=== PATIENT | female | born 1985 | race Caucasian/White ===

== ENCOUNTER → 2016-05-04 | Outpatient (CLI) | payer OTHER | LOC: MW.LAB 12:51 | PROVIDERS: ATTEND Podiatrist Foot & Ankle Surgery | DX: B35.1 Tinea unguium (principal) | CPT/HCPCS: 36415; 80076 ==

== ENCOUNTER 2017-12-02 04:59 | Inpatient (IN) | payer OTHER ==
[2017-12-02] MEDS ORDERED: Citric Acid/Sodium Citrate Solution 30 ML Cup PO ONE (05:25)
[2017-12-02] MEDS ORDERED: ceFAZolin 2 GM in Premix Bag 1 BAG IV ONE (05:25)
[2017-12-02] MEDS ORDERED: Sodium Chloride 0.9% 10 ML Syringe FLUSH PRN (05:25)
[2017-12-02] MEDS ORDERED: Sodium Chloride 0.9% 2.5 ML Syringe FLUSH PRN (05:25)
[2017-12-02] MEDS ORDERED: Oxytocin/0.9 % Sodium Chloride 30 UNIT/500 ML BAG IV SCH (05:30)
[2017-12-02] MEDS: Lactated Ringers 1,000 ML IV SCH ×2 (06:12→06:50)
[2017-12-02] MEDS ORDERED: Sodium Chloride 0.9% 20 ML ONE ×2 (06:51→07:13)
[2017-12-02] MEDS ORDERED: Ondansetron 4 MG/2 ML SDV ONE (06:51)
[2017-12-02] MEDS ORDERED: Morphine PF 1 MG/ML Amp ONE (06:51)
[2017-12-02] MEDS ORDERED: Oxytocin 10 Units/1 ML SDV ONE (06:51)
[2017-12-02] MEDS ORDERED: ePHEDrine 50 MG/ML SDV ONE (06:51)
--- NOTE | 2017-12-02 06:57 | PCM.PREANE ---
Preanesthetic Assessment - Procedure Proposed Procedure: Primary (second LB) - Anesthesia/Transfusion/Family Hx Anesthesia History: No Prior Anesthesia Family History of Anesthesia Reaction: No Transfusion History: No Prior Transfusion(s) Intubation History: Unknown Additional History: difficulty with prior VDelivery due to forceps and 3rd degree lac - Review of Systems General: Other () Pulmonary: No Symptoms Cardiovascular: No Symptoms Gastrointestinal: Other (GERD of ) Neurological: No Symptoms Other: Reports: None, Anxiety - Physical Assessment NPO Status Date: 12/08/17 NPO Status Time: 22:00 Height: 5 ft 5 in Weight: 179 lb ASA Class: 2 Mental Status: Alert & Oriented x3 Airway Class: Mallampati = 1 Dentition: Reports: Normal Dentition Thyro-Mental Finger Breadths: 3 Mouth Opening Finger Breadths: 3 ROM/Head Extension: Full Lungs: Clear to Auscultation, Normal Respiratory Effort Cardiovascular: Regular Rate, Regular Rhythm, No Murmurs - Lab Values: Laboratory Last Values WBC 7.30 K/uL (4.0-11.0) 12/02/17 05:55 RBC 3.72 M/uL (4.30-5.90) L 12/02/17 05:55 Hgb 10.5 g/dL (12.0-16.0) L 12/02/17 05:55 Hct 31.8 % (36.0-46.0) L 12/02/17 05:55 MCV 85.5 fL (80.0-98.0) 12/02/17 05:55 MCH 28.2 pg (27.0-32.0) 12/02/17 05:55 MCHC 33.0 g/dL (31.0-37.0) 12/02/17 05:55 RDW Std Deviation 42.7 fl (28.0-62.0) 12/02/17 05:55 RDW Coeff of Eric 14 % (11.0-15.0) 12/02/17 05:55 Plt Count 189 K/uL (150-400) 12/02/17 05:55 MPV 11.00 fL (7.40-12.00) 12/02/17 05:55 Nucleated RBC % 0.0 /100WBC 12/02/17 05:55 Nucleated RBCs # 0 K/uL 12/02/17 05:55 - Allergies Allergies/Adverse Reactions: Allergies Allergy/AdvReac Type Severity Reaction Status Date / Time No Known Allergies Allergy Verified 11/30/17 11:23 - Blood Blood Available: No Product(s) Available: PRBC (T and S; banded so drawn) - Anesthesia Plan Pre-Op Medication Ordered: Antacids, Other (she asked about "motion sickness" prophylaxis - discuss with DUST SAMPLER and Surgeon) - Acknowledgements Anesthesia Type Planned: Spinal Pt an Appropriate Candidate for the Planned Anesthesia: Yes Alternatives and Risks of Anesthesia Discussed w Pt/Guardian: Yes Pt/Guardian Understands and Agrees with Anesthesia Plan: Yes PreAnesthesia Questionnaire - Past Health History Medical/Surgical History: Denies Medical/Surgical History Cardiovascular History: Reports: Other (See Below) Other Cardiovascular History: murmur as a child [employer] FEEDER History: Reports: - Past Surgical History Head Surgeries/Procedures: Reports: None - SUBSTANCE USE Smoking Status *Q: Never Smoker Second Hand Smoke Exposure: No Recreational Drug Use History: No - HOME MEDS Home Medications: Home Meds Docusate Sodium [Colace] 1 tab PO BID 11/30/17 [History] Omeprazole Magnesium [Prilosec Otc] 20 mg PO DAILY 11/30/17 [History] PNV95/Ferrous Fumarate/FA [ Vitamin Tablet] 1 tab PO DAILY 11/30/17 [ History] - CURRENT (IN HOUSE) MEDS Current Meds: Current Medications Lactated Ringer's (Ringers, Lactated) 1,000 mls @ 500 mls/hr IV BOLUS CHELSEY Last Admin: 12/02/17 06:50 Dose: 500 mls/hr Oxytocin/Sodium Chloride (Oxytocin 30 Unit/500 Ml-Ns) 30 unit in 500 mls @ 250 mls/hr IV TITRATE [facility] Sodium Chloride (Saline Flush) 10 ml FLUSH ASDIRECTED PRN PRN Reason: Keep Vein Open Sodium Chloride (Saline Flush) 2.5 ml FLUSH ASDIRECTED PRN PRN Reason: Keep Vein Open Discontinued Medications Citric Acid/Sodium Citrate (Bicitra Solution) 30 ml PO ONETIME ONE Stop: 12/02/17 05:26 Cefazolin Sodium/Dextrose 2 gm (/ Premix) 50 mls @ 100 mls/hr IV ONETIME ONE Stop: 12/02/17 05:54
[2017-12-02] MEDS ORDERED: ceFAZolin 1 GM Vial ONE (07:13)
[2017-12-02] MEDS ORDERED: Phenylephrine/Normal Saline 100 MCG/ML 10 ML Syringe ONE (07:39)
[2017-12-02] MEDS ORDERED: Octyl 2-Cyanoacrylate 1 Tube ONE (08:06)
[2017-12-02] MEDS ORDERED: Ibuprofen 800 MG Tab PO PRN (08:24)
[2017-12-02] MEDS ORDERED: Lanolin 100% Cream 7 GM Tube TOP PRN (08:24)
[2017-12-02] MEDS ORDERED: diphenhydrAMINE 50 MG/ML SDV IVPUSH PRN (08:24)
[2017-12-02] MEDS ORDERED: Aluminum Hydroxide/Magnesium Hydroxide/Simethicone Susp 30 ML Cup PO PRN (08:24)
[2017-12-02] MEDS ORDERED: Ondansetron 4 MG/2 ML SDV IV PRN (08:24)
[2017-12-02] MEDS ORDERED: Bisacodyl 10 MG Supp RECTAL PRN (08:24)
[2017-12-02] MEDS ORDERED: Lactated Ringers 1,000 ML IV SCH (08:30)
--- NOTE | 2017-12-02 08:34 | PCM.OPNOTE ---
- General Post-Op/Procedure Note Date of Surgery/Procedure: 12/02/17 Operative Procedure(s): Primary LTCS Findings: Term female APGARs 8, 9 weight 3250 gm. Intact placenta with 3V cord. Normal appearing pelvis. Pre Op Diagnosis: 39 weeks IUP. History of shoulder dystocia Post-Op Diagnosis: Same Anesthesia Technique: Spinal Primary Surgeon: Yady Lares Fluid Replacement, Intraop: 2,000 EBL in mLs: 500 Complications: none known Condition: Good Free Text/Narrative:: Dictation [id number]
[2017-12-02] MEDS ORDERED: Naloxone 0.4 MG/ML Syringe IVPUSH PRN (08:37)
--- NOTE | 2017-12-02 08:40 | PCM.POSTAN ---
POST ANESTHESIA ASSESSMENT - MENTAL STATUS Mental Status: Alert, Oriented - RESPIRATORY Respiratory Status: Respiratory Rate WNL, Airway Patent, O2 Saturation Stable - CARDIOVASCULAR CV Status: Pulse Rate WNL, Blood Pressure Stable - GASTROINTESTINAL GI Status: No Symptoms - POST OP HYDRATION Hydration Status: Adequate & Stable - OBSERVATIONS Free Text/Narrative:: pruritis treated with nalbuphine
[2017-12-02] MEDS ORDERED: Nalbuphine 10 MG/ML 10 ML MDV ONE (08:43)
[2017-12-02] MEDS: Ketorolac 30 MG/ML SDV IVPUSH SCH ×3 (08:46→20:22)
[2017-12-02] MEDS: Nalbuphine 10 MG/1 ML Vial IVPUSH PRN ×3 (08:49→19:48)
[2017-12-02] MEDS ORDERED: Metoclopramide 10 MG/2 ML SDV IVPUSH ONE (09:43)
--- NOTE | 2017-12-02 10:44 | OR ---
SURGEON: Yady Lares M.D. DATE OF PROCEDURE: 12/02/2017 PREOPERATIVE DIAGNOSES: 1. A 39-week intrauterine . 2. History of shoulder dystocia. POSTOPERATIVE DIAGNOSES: 1. A 39-week intrauterine . 2. History of shoulder dystocia. PROCEDURE: Primary low transverse section. ANESTHESIA: Spinal. ESTIMATED BLOOD LOSS: 500 mL. FLUIDS: 2000 mL crystalloid. COMPLICATIONS: None. FINDINGS: A term female. scores of 8 at 1 minute and 9 at 5 minutes; 3250 g. Spontaneous delivery. Intact placenta. Three-vessel cord. DISPOSITION: to Nursery. Mom to PACU, stable. PROCEDURE IN DETAIL: Samantha is a 32-year-old, G2, P1, at 39 weeks' gestational age, who presents this morning for a scheduled primary section due to history of shoulder dystocia with subsequent neuropathy for her sudden allover. After a long discussion, the patient and her opted to proceed with a delivery. DESCRIPTION OF PROCEDURE: The risks of the procedure were discussed. Proper consent was obtained. The patient was taken to the operating room, where she underwent a spinal anesthetic, was then placed in dorsal supine position with leftward tilt. SCDs to the lower extremities. Amezquita to gravity. Received Ancef prophylactically. Time-out was performed. The patient was prepped and draped in the usual sterile fashion with leftward tilt. Anesthesia was tested and found to be adequate. A Pfannenstiel incision was now created and carried down to the level of the rectus fascia, which was incised in the midline and lateralized on either side sharply and bluntly. The superior aspect of the fascia was tented upward, dissected sharply and bluntly from the underlying muscles. In a similar aspect, performed on the inferior aspect of the fascia. Rectus muscles were in the midline, and the peritoneum was tented up and entered. The rectus muscles and peritoneum were now lateralized bluntly. Uterine position and position were palpated. Self-retaining retractor was now gently placed. Uterovesical reflection was visualized. Bladder flap was created sharply and bluntly. The bladder was mobilized away from lower uterine segment. A low transverse hysterotomy was now performed. Uterine cavity was entered bluntly with a scalpel. Hysterotomy was lateralized bluntly. Amniotomy was performed. Clear fluid was returned. Head was flexed and delivered from the pelvis. Fundal pressure was applied. The head was delivered followed by the anterior shoulder, posterior shoulder, and remaining body. The 's oropharynx and nares were bulb suctioned. The cord was clamped x2 and cut. The infant was handed off to the attending nursing staff. Cord arterial, cord venous, and cord blood sampling obtained. The placenta was now delivered intact. Uterine cavity was cleared of all clot and debris. Hysterotomy was repaired using 0 Vicryl in a continuous running locked fashion followed by a re-imbricating layer. Areas of oozing along the right lateral side were replicated with [id number]-di-[id number] suture. Hemostasis thereafter evident. Uterus remained firm. Posterior aspect of the uterus was inspected. No defects or hematomas found to be forming. Tubes and ovaries appeared normal. The region was well irrigated, suctioned, and dried. Colonic gutters were cleared of all clot and debris, well irrigated, suctioned, and dried. Hysterotomy was again inspected and found to be hemostatic. The uterus was returned to the abdominal cavity. Self-retaining retractor now gently removed. Bladder blade was placed to inspect the hysterotomy once again which was once again found to be hemostatic. The bladder blade was removed. The rectus muscles were now reapproximated using 0 Vicryl in an inverted mattress suture technique. Anterior aspect of the muscle and posterior aspect of the fascia were closely inspected. Any areas of oozing were cauterized. The rectus fascia was now reapproximated using 0 Vicryl beginning laterally on each side in a continuous running fashion meeting in the midline. Subcutaneous tissue was well irrigated, suctioned, and dried. Any areas of oozing were cauterized. The skin edges were now reapproximated using 3- 0 Vicryl with a Jonathan needle in a subcuticular fashion, followed by re- imbrication with 1/2-inch Steri-Strips and Mastisol. Uterus remained firm. Hemostasis was evident. Sponge and needle counts correct x2. The patient tolerated the procedure well overall. She will go to PACU in stable condition and the infant to [facility]. MELVI / NORTH /[id number]
--- NOTE | 2017-12-02 17:41 | PCM.SN ---
- Free Text/Narrative Note: patient denies pain--but has been dealing with nausea throughout the day. Reglan is heping. She is feeling better now and would like to eat. Getting ready to ambulate. VS are stable. Continue postoperative cares. Dr Martini will manage patient over the weekend. Patient is aware.
[2017-12-02] MEDS ORDERED: Scopolamine 1.5 MG Transdermal Patch TRDERM PRN (17:45)
--- NOTE | 2017-12-02 17:48 | PCM48HPAN ---
Post Anesthesia Note - EVALUATION WITHIN 48HRS OF ANESTHETIC Vital Signs in Normal Range: Yes Patient Participated in Evaluation: Yes Respiratory Function Stable: Yes Airway Patent: Yes Cardiovascular Function Stable: Yes Hydration Status Stable: Yes Pain Control Satisfactory: Yes Nausea and Vomiting Control Satisfactory: Yes Mental Status Recovered: Yes Resp Rate: 16
[2017-12-02] MEDS: Docusate Sodium 100 MG Cap PO SCH ×2 (19:05→21:19)
[2017-12-02] MEDS: Simethicone 80 MG Tab.Chew PO SCH (19:06)
[2017-12-03] MEDS: Nalbuphine 10 MG/1 ML Vial IVPUSH PRN ×2 (00:09→06:10)
[2017-12-03] MEDS: Simethicone 80 MG Tab.Chew PO SCH ×4 (00:37→20:03)
[2017-12-03] MEDS: Ketorolac 30 MG/ML SDV IVPUSH SCH ×2 (02:27→08:41)
--- NOTE | 2017-12-03 10:04 | PCM.PNPP ---
- General Info Date of Service: 12/03/17 Functional Status: Reports: Pain Controlled, Tolerating Diet, Ambulating, Urinating - Review of Systems General: Reports: No Symptoms HEENT: Reports: No Symptoms Pulmonary: Reports: No Symptoms Cardiovascular: Reports: No Symptoms Gastrointestinal: Reports: No Symptoms Genitourinary: Reports: No Symptoms Musculoskeletal: Reports: No Symptoms Skin: Reports: No Symptoms Neurological: Reports: No Symptoms Psychiatric: Reports: No Symptoms - General Info Date of Service: 12/03/17 - Patient Data Vital Signs - Most Recent: Last Vital Signs Temp 36.1 C 12/03/17 04:00 Pulse 67 12/03/17 06:43 Resp 16 12/03/17 06:43 BP 110/60 12/03/17 04:00 Pulse Ox 100 12/03/17 06:43 Weight - Most Recent: 81.193 kg I&O - Last 24 Hours: Intake & Output 12/02/17 12/03/17 12/03/17 22:59 06:59 14:59 Intake Total 1260 Output Total 850 1550 Balance -850 -290 Lab Results - Last 24 Hours: Laboratory Results - last 24 hr 12/03/17 Range/Units 05:59 Hgb 8.7 L (12.0-16.0) g/dL Hct 26.3 L (36.0-46.0) % Med Orders - Current: Current Medications Al Hydroxide/Mg Hydroxide (Mag-Al Plus) 30 ml PO Q8H PRN PRN Reason: Heartburn Bisacodyl (Dulcolax) 10 mg RECTAL ONETIME PRN PRN Reason: Constipation Diphenhydramine HCl (Benadryl) 25 mg IVPUSH Q6H PRN PRN Reason: Itching or Nausea Last Admin: 12/02/17 14:50 Dose: 25 mg Docusate Sodium (Colace) 100 mg PO BID CHELSEY Last Admin: 12/02/17 21:19 Dose: Not Given Emollient Ointment (Lansinoh Hpa) 0 gm TOP ASDIRECTED PRN PRN Reason: Sore Nipples Lactated Ringer's (Ringers, Lactated) 1,000 mls @ 500 mls/hr IV BOLUS CHELSEY Last Admin: 12/02/17 06:50 Dose: 500 mls/hr Oxytocin/Sodium Chloride (Oxytocin 30 Unit/500 Ml-Ns) 30 unit in 500 mls @ 250 mls/hr IV TITRATE [facility] Lactated Ringer's (Ringers, Lactated) 1,000 mls @ 125 mls/hr IV ASDIRECTED [facility] Last Admin: 12/02/17 10:00 Dose: 125 mls/hr Ibuprofen (Motrin) 800 mg PO Q8H PRN PRN Reason: mild pain or fever Ondansetron HCl (Zofran) 4 mg IV Q4H PRN PRN Reason: Nausea/Vomiting Last Admin: 12/02/17 12:36 Dose: 4 mg Oxycodone/Acetaminophen (Percocet 325-5 Mg) 1 tab PO Q4H PRN PRN Reason: Pain (moderate 4-6) Oxycodone/Acetaminophen (Percocet 325-5 Mg) 2 tab PO Q4H PRN PRN Reason: Pain (moderate 4-6) Scopolamine (Transderm-Scop) 1.5 mg TRDERM Q72H PRN PRN Reason: Nausea Last Admin: 12/02/17 19:47 Dose: 1.5 mg Simethicone (Simethicone) 160 mg PO QID [facility] Last Admin: 12/03/17 06:10 Dose: Not Given Sodium Chloride (Saline Flush) 10 ml FLUSH ASDIRECTED PRN PRN Reason: Keep Vein Open Sodium Chloride (Saline Flush) 2.5 ml FLUSH ASDIRECTED PRN PRN Reason: Keep Vein Open Discontinued Medications Cefazolin Sodium (Ancef) Confirm Administered Dose 2 gm .ROUTE .STK-MED ONE Stop: 12/02/17 07:14 Citric Acid/Sodium Citrate (Bicitra Solution) 30 ml PO ONETIME ONE Stop: 12/02/17 05:26 Last Admin: 12/02/17 07:26 Dose: 30 ml Ephedrine Sulfate (Ephedrine Sulfate) Confirm Administered Dose 50 mg .ROUTE .STK-MED ONE Stop: 12/02/17 06:52 Cefazolin Sodium/Dextrose 2 gm (/ Premix) 50 mls @ 100 mls/hr IV ONETIME ONE Stop: 12/02/17 05:54 Last Admin: 12/02/17 19:05 Dose: Not Given Sodium Chloride (Normal Saline) Confirm Administered Dose 20 mls @ as directed .ROUTE .STK-MED ONE Stop: 12/02/17 06:52 Sodium Chloride (Normal Saline) Confirm Administered Dose 20 mls @ as directed .ROUTE .STK-MED ONE Stop: 12/02/17 07:14 Ketorolac Tromethamine (Toradol) 30 mg IVPUSH Q6H [facility] Stop: 12/03/17 08:31 Last Admin: 12/03/17 08:41 Dose: 30 mg Metoclopramide HCl (Reglan) 10 mg IVPUSH ONETIME ONE Stop: 12/02/17 09:44 Last Admin: 12/02/17 09:55 Dose: 10 mg Morphine Sulfate (Duramorph Pf) Confirm Administered Dose 1 mg .ROUTE .STK-MED ONE Stop: 12/02/17 06:52 Nalbuphine HCl (Nubain) 10 mg IVPUSH Q3H PRN PRN Reason: pruritis and pain Stop: 12/03/17 08:38 Last Admin: 12/03/17 06:10 Dose: 10 mg Nalbuphine HCl (Nubain) Confirm Administered Dose 100 mg .ROUTE .STK-MED ONE Stop: 12/02/17 08:44 Naloxone HCl (Narcan) 0.1 mg IVPUSH ONETIME PRN PRN Reason: Respiratory Depression Stop: 12/03/17 08:37 Octyl Cyanoacrylate (Dermabond Advance) Confirm Administered Dose 1 applic .ROUTE .STK-MED ONE Stop: 12/02/17 08:07 Ondansetron HCl (Zofran) Confirm Administered Dose 4 mg .ROUTE .STK-MED ONE Stop: 12/02/17 06:52 Oxytocin (Pitocin) Confirm Administered Dose 20 unit .ROUTE .STK-MED ONE Stop: 12/02/17 06:52 Phenylephrine HCl (Phenylephrine In Ns 100 Mcg/Ml) Confirm Administered Dose 1 mg .ROUTE .STK-MED ONE Stop: 12/02/17 07:40 - Interaction Disposition, : [place] in Room with Family Interaction: Holding Infant Feeding: Attempted ; Nursed Fair/Poor Support Person: - Recovery Exam Fundal Tone: Firm Fundal Level: At Umbilicus Fundal Placement: Midline Lochia Amount: Scant Lochia Color: Rubra/Red Perineum Description: Intact, Minimal Bruising/Swelling Episiotomy/Laceration: None Bladder Status: Indwelling Catheter in Place Urinary Elimination: Indwelling Catheter - Exam General: Alert, Oriented HEENT: Pupils Equal Neck: Supple Lungs: Clear to Auscultation, Normal Respiratory Effort Cardiovascular: Regular Rate, Regular Rhythm GI/Abdominal Exam: Normal Bowel Sounds, Soft, Non-Tender, No Distention, No Mass Extremities: Normal Inspection, Non-Tender, No Pedal Edema Skin: Warm, Dry, Intact Wound/Incisions: Healing Well Neurological: No New Focal Deficit Psy/Mental Status: Alert, Normal Affect, Normal Mood - Problem List & Annotations (1) delivery delivered SNOMED Code(s): 424196338 Code(s): O82 - ENCOUNTER FOR DELIVERY WITHOUT INDICATION Status: Acute Current Visit: Yes - Problem List Review Problem List Initiated/Reviewed/Updated: Yes - Assessment Assessment:: POD#1 after repeat low transverse . Stable, minimal lochia, tolerating regular diet. Has not tried oral pain medication yet. - Plan Plan:: Continue care, anticipate home in am.
[2017-12-03] MEDS: Acetaminophen/oxyCODONE 325-5 MG Tab PO PRN ×3 (12:39→20:08)
[2017-12-03] MEDS: Docusate Sodium 100 MG Cap PO SCH ×2 (15:46→21:00)
[2017-12-04] MEDS: Acetaminophen/oxyCODONE 325-5 MG Tab PO PRN ×3 (00:58→10:22)
[2017-12-04] MEDS: Simethicone 80 MG Tab.Chew PO SCH ×2 (02:20→06:20)
[2017-12-04 07:50] VITALS: BP 99/50
--- NOTE | 2017-12-04 08:53 | PCM.PNPP ---
<Mike Rojas - Last Filed: 12/04/17 08:45> - General Info Date of Service: 12/04/17 Functional Status: Reports: Pain Controlled (with tylenol/percocet), Tolerating Diet, Ambulating, Urinating - Review of Systems General: Reports: No Symptoms. Denies: Fever HEENT: Reports: No Symptoms Pulmonary: Reports: No Symptoms. Denies: Shortness of Breath, Pleuritic Chest Pain Cardiovascular: Reports: No Symptoms. Denies: Chest Pain, Palpitations Gastrointestinal: Reports: No Symptoms Genitourinary: Reports: No Symptoms Musculoskeletal: Reports: No Symptoms Skin: Reports: No Symptoms Neurological: Reports: No Symptoms Psychiatric: Reports: No Symptoms - General Info Date of Service: 12/04/17 - Patient Data Vital Signs - Most Recent: Last Vital Signs Temp 36.4 C 12/04/17 07:48 Pulse 56 L 12/04/17 07:48 Resp 16 12/04/17 07:48 BP 99/50 L 12/04/17 07:48 Pulse Ox 97 12/04/17 07:48 Weight - Most Recent: 81.193 kg Med Orders - Current: Current Medications Al Hydroxide/Mg Hydroxide (Mag-Al Plus) 30 ml PO Q8H PRN PRN Reason: Heartburn Bisacodyl (Dulcolax) 10 mg RECTAL ONETIME PRN PRN Reason: Constipation Diphenhydramine HCl (Benadryl) 25 mg IVPUSH Q6H PRN PRN Reason: Itching or Nausea Last Admin: 12/02/17 14:50 Dose: 25 mg Docusate Sodium (Colace) 100 mg PO BID [facility] Last Admin: 12/03/17 21:00 Dose: Not Given Emollient Ointment (Lansinoh Hpa) 0 gm TOP ASDIRECTED PRN PRN Reason: Sore Nipples Lactated Ringer's (Ringers, Lactated) 1,000 mls @ 500 mls/hr IV BOLUS [facility] Last Admin: 12/02/17 06:50 Dose: 500 mls/hr Oxytocin/Sodium Chloride (Oxytocin 30 Unit/500 Ml-Ns) 30 unit in 500 mls @ 250 mls/hr IV TITRATE [facility] Lactated Ringer's (Ringers, Lactated) 1,000 mls @ 125 mls/hr IV ASDIRECTED [facility] Last Admin: 12/02/17 10:00 Dose: 125 mls/hr Ibuprofen (Motrin) 800 mg PO Q8H PRN PRN Reason: mild pain or fever Ondansetron HCl (Zofran) 4 mg IV Q4H PRN PRN Reason: Nausea/Vomiting Last Admin: 12/02/17 12:36 Dose: 4 mg Oxycodone/Acetaminophen (Percocet 325-5 Mg) 1 tab PO Q4H PRN PRN Reason: Pain (moderate 4-6) Last Admin: 12/03/17 15:45 Dose: 1 tab Oxycodone/Acetaminophen (Percocet 325-5 Mg) 2 tab PO Q4H PRN PRN Reason: Pain (moderate 4-6) Last Admin: 12/04/17 05:38 Dose: 2 tab Scopolamine (Transderm-Scop) 1.5 mg TRDERM Q72H PRN PRN Reason: Nausea Last Admin: 12/02/17 19:47 Dose: 1.5 mg Simethicone (Simethicone) 160 mg PO QID [facility] Last Admin: 12/04/17 06:20 Dose: Not Given Sodium Chloride (Saline Flush) 10 ml FLUSH ASDIRECTED PRN PRN Reason: Keep Vein Open Sodium Chloride (Saline Flush) 2.5 ml FLUSH ASDIRECTED PRN PRN Reason: Keep Vein Open Discontinued Medications Cefazolin Sodium (Ancef) Confirm Administered Dose 2 gm .ROUTE .STK-MED ONE Stop: 12/02/17 07:14 Citric Acid/Sodium Citrate (Bicitra Solution) 30 ml PO ONETIME ONE Stop: 12/02/17 05:26 Last Admin: 12/02/17 07:26 Dose: 30 ml Ephedrine Sulfate (Ephedrine Sulfate) Confirm Administered Dose 50 mg .ROUTE .STK-MED ONE Stop: 12/02/17 06:52 Cefazolin Sodium/Dextrose 2 gm (/ Premix) 50 mls @ 100 mls/hr IV ONETIME ONE Stop: 12/02/17 05:54 Last Admin: 12/02/17 19:05 Dose: Not Given Sodium Chloride (Normal Saline) Confirm Administered Dose 20 mls @ as directed .ROUTE .STK-MED ONE Stop: 12/02/17 06:52 Sodium Chloride (Normal Saline) Confirm Administered Dose 20 mls @ as directed .ROUTE .STK-MED ONE Stop: 12/02/17 07:14 Ketorolac Tromethamine (Toradol) 30 mg IVPUSH Q6H [facility] Stop: 12/03/17 08:31 Last Admin: 12/03/17 08:41 Dose: 30 mg Metoclopramide HCl (Reglan) 10 mg IVPUSH ONETIME ONE Stop: 12/02/17 09:44 Last Admin: 12/02/17 09:55 Dose: 10 mg Morphine Sulfate (Duramorph Pf) Confirm Administered Dose 1 mg .ROUTE .STK-MED ONE Stop: 12/02/17 06:52 Nalbuphine HCl (Nubain) 10 mg IVPUSH Q3H PRN PRN Reason: pruritis and pain Stop: 12/03/17 08:38 Last Admin: 12/03/17 06:10 Dose: 10 mg Nalbuphine HCl (Nubain) Confirm Administered Dose 100 mg .ROUTE .STK-MED ONE Stop: 12/02/17 08:44 Naloxone HCl (Narcan) 0.1 mg IVPUSH ONETIME PRN PRN Reason: Respiratory Depression Stop: 12/03/17 08:37 Octyl Cyanoacrylate (Dermabond Advance) Confirm Administered Dose 1 applic .ROUTE .STK-MED ONE Stop: 12/02/17 08:07 Ondansetron HCl (Zofran) Confirm Administered Dose 4 mg .ROUTE .STK-MED ONE Stop: 12/02/17 06:52 Oxytocin (Pitocin) Confirm Administered Dose 20 unit .ROUTE .STK-MED ONE Stop: 12/02/17 06:52 Phenylephrine HCl (Phenylephrine In Ns 100 Mcg/Ml) Confirm Administered Dose 1 mg .ROUTE .STK-MED ONE Stop: 12/02/17 07:40 - Interaction Disposition, : in Room with Family Infant Interaction: Not Interacting ( sleeping) Infant Feeding: Attempted ; Nursed Fair/Poor Support Person: - Recovery Exam Fundal Tone: Firm Fundal Level: 2 Fingerbreadths Below Umbilicus Fundal Placement: Midline Lochia Amount: Scant Lochia Color: Rubra/Red Perineum Description: Intact, Minimal Bruising/Swelling Episiotomy/Laceration: Approximated Bladder Status: Voiding Urinary Elimination: Voided - Exam General: Alert, Oriented, Cooperative, No Acute Distress HEENT: Pupils Equal, Pupils Reactive Neck: Supple Lungs: Clear to Auscultation, Normal Respiratory Effort Cardiovascular: Regular Rate, Regular Rhythm, No Murmurs GI/Abdominal Exam: Normal Bowel Sounds, Soft, Pelvis Stable Extremities: Normal Inspection, Normal Range of Motion Skin: Warm, Dry, Intact Wound/Incisions: Healing Well Neurological: No New Focal Deficit Psy/Mental Status: Alert, Normal Affect, Normal Mood - Problem List & Annotations (1) delivery delivered SNOMED Code(s): 844237268 Code(s): O82 - ENCOUNTER FOR DELIVERY WITHOUT INDICATION Status: Acute Current Visit: Yes - Problem List Review Problem List Initiated/Reviewed/Updated: Yes - Assessment Assessment:: POD#2 after repeat low transverse . Stable, minimal lochia, tolerating regular diet. Using tylenol and percocet for pain. - Plan Plan:: Discharge instructions reviewed. Pelvic rest for 6 weeks. No lifting anything more than 10 lbs. Can use ibuprofen/tylenol as needed for pain. Instructed patient to call if she develops fever greater than 101 or bleeding through large pad an hour. F/U with [facility] in 6 weeks. <Fela Martini - Last Filed: 12/04/17 09:34> - Patient Data Vital Signs - Most Recent: Last Vital Signs Temp 36.4 C 12/04/17 07:48 Pulse 56 L 12/04/17 07:48 Resp 16 12/04/17 07:48 BP 99/50 L 12/04/17 07:48 Pulse Ox 97 12/04/17 07:48 Med Orders - Current: Current Medications Al Hydroxide/Mg Hydroxide (Mag-Al Plus) 30 ml PO Q8H PRN PRN Reason: Heartburn Bisacodyl (Dulcolax) 10 mg RECTAL ONETIME PRN PRN Reason: Constipation Diphenhydramine HCl (Benadryl) 25 mg IVPUSH Q6H PRN PRN Reason: Itching or Nausea Last Admin: 12/02/17 14:50 Dose: 25 mg Docusate Sodium (Colace) 100 mg PO BID [facility] Last Admin: 12/04/17 08:56 Dose: Not Given Emollient Ointment (Lansinoh Hpa) 0 gm TOP ASDIRECTED PRN PRN Reason: Sore Nipples Lactated Ringer's (Ringers, Lactated) 1,000 mls @ 500 mls/hr IV BOLUS [facility] Last Admin: 12/02/17 06:50 Dose: 500 mls/hr Oxytocin/Sodium Chloride (Oxytocin 30 Unit/500 Ml-Ns) 30 unit in 500 mls @ 250 mls/hr IV TITRATE [facility] Lactated Ringer's (Ringers, Lactated) 1,000 mls @ 125 mls/hr IV ASDIRECTED [facility] Last Admin: 12/02/17 10:00 Dose: 125 mls/hr Ibuprofen (Motrin) 800 mg PO Q8H PRN PRN Reason: mild pain or fever Ondansetron HCl (Zofran) 4 mg IV Q4H PRN PRN Reason: Nausea/Vomiting Last Admin: 12/02/17 12:36 Dose: 4 mg Oxycodone/Acetaminophen (Percocet 325-5 Mg) 1 tab PO Q4H PRN PRN Reason: Pain (moderate 4-6) Last Admin: 12/03/17 15:45 Dose: 1 tab Oxycodone/Acetaminophen (Percocet 325-5 Mg) 2 tab PO Q4H PRN PRN Reason: Pain (moderate 4-6) Last Admin: 12/04/17 05:38 Dose: 2 tab Scopolamine (Transderm-Scop) 1.5 mg TRDERM Q72H PRN PRN Reason: Nausea Last Admin: 12/02/17 19:47 Dose: 1.5 mg Simethicone (Simethicone) 160 mg PO QID [facility] Last Admin: 12/04/17 06:20 Dose: Not Given Sodium Chloride (Saline Flush) 10 ml FLUSH ASDIRECTED PRN PRN Reason: Keep Vein Open Sodium Chloride (Saline Flush) 2.5 ml FLUSH ASDIRECTED PRN PRN Reason: Keep Vein Open Discontinued Medications Cefazolin Sodium (Ancef) Confirm Administered Dose 2 gm .ROUTE .STK-MED ONE Stop: 12/02/17 07:14 Citric Acid/Sodium Citrate (Bicitra Solution) 30 ml PO ONETIME ONE Stop: 12/02/17 05:26 Last Admin: 12/02/17 07:26 Dose: 30 ml Ephedrine Sulfate (Ephedrine Sulfate) Confirm Administered Dose 50 mg .ROUTE .STK-MED ONE Stop: 12/02/17 06:52 Cefazolin Sodium/Dextrose 2 gm (/ Premix) 50 mls @ 100 mls/hr IV ONETIME ONE Stop: 12/02/17 05:54 Last Admin: 12/02/17 19:05 Dose: Not Given Sodium Chloride (Normal Saline) Confirm Administered Dose 20 mls @ as directed .ROUTE .STK-MED ONE Stop: 12/02/17 06:52 Sodium Chloride (Normal Saline) Confirm Administered Dose 20 mls @ as directed .ROUTE .STK-MED ONE Stop: 12/02/17 07:14 Ketorolac Tromethamine (Toradol) 30 mg IVPUSH Q6H [facility] Stop: 12/03/17 08:31 Last Admin: 12/03/17 08:41 Dose: 30 mg Metoclopramide HCl (Reglan) 10 mg IVPUSH ONETIME ONE Stop: 12/02/17 09:44 Last Admin: 12/02/17 09:55 Dose: 10 mg Morphine Sulfate (Duramorph Pf) Confirm Administered Dose 1 mg .ROUTE .STK-MED ONE Stop: 12/02/17 06:52 Nalbuphine HCl (Nubain) 10 mg IVPUSH Q3H PRN PRN Reason: pruritis and pain Stop: 12/03/17 08:38 Last Admin: 12/03/17 06:10 Dose: 10 mg Nalbuphine HCl (Nubain) Confirm Administered Dose 100 mg .ROUTE .STK-MED ONE Stop: 12/02/17 08:44 Naloxone HCl (Narcan) 0.1 mg IVPUSH ONETIME PRN PRN Reason: Respiratory Depression Stop: 12/03/17 08:37 Octyl Cyanoacrylate (Dermabond Advance) Confirm Administered Dose 1 applic .ROUTE .STK-MED ONE Stop: 12/02/17 08:07 Ondansetron HCl (Zofran) Confirm Administered Dose 4 mg .ROUTE .STK-MED ONE Stop: 12/02/17 06:52 Oxytocin (Pitocin) Confirm Administered Dose 20 unit .ROUTE .STK-MED ONE Stop: 12/02/17 06:52 Phenylephrine HCl (Phenylephrine In Ns 100 Mcg/Ml) Confirm Administered Dose 1 mg .ROUTE .STK-MED ONE Stop: 12/02/17 07:40 - Problem List & Annotations (1) delivery delivered SNOMED Code(s): 805100633 Code(s): O82 - ENCOUNTER FOR DELIVERY WITHOUT INDICATION Status: Acute Current Visit: Yes (2) History of shoulder dystocia in prior SNOMED Code(s): 803408928 Code(s): Z87.59 - PERSONAL HISTORY OF COMP OF PREG, CHLDBRTH AND THE PUERP Status: Acute Current Visit: Yes Annotation/Comment:: prior severe shoulder dystocia. - Problem List Review Problem List Initiated/Reviewed/Updated: Yes - Assessment Assessment:: Patient was seen and examined and I agree with above. Clarification, patient is taking Ibuprofen and Percocet for pain. Discharge instructions reviewed. Bottle feeding, continue iron for 30 days.
[2017-12-04] MEDS: Docusate Sodium 100 MG Cap PO SCH (08:56)
== END 2017-12-04 11:00 | disposition home or self-care (01) | DRG 788 ==
LOC: MW.SDS 04:59 → MW.OB 05:09 → OBSVTOIN 07:50 → MW.OB 07:50 → MW.SDS 07:50
PROVIDERS: ADMIT Obstetrics & Gynecology; ATTEND Obstetrics & Gynecology
PROC: 10D00Z1 Extraction of Products of Conception, Low, Open Approach (ICD-10-PCS; principal; 2017-12-02)
DX: O34.211 Maternal care for low transverse scar from previous cesarean delivery (principal); Z3A.39 39 weeks gestation of pregnancy; Z37.0 Single live birth
CPT/HCPCS: 36415; 59025; 82803; 85014; 85018; 85027; 86156; 86850; 86900; 86901; A9270-GY; J0690; J1200; J1885; J2274; J2300; J2370; J2405; J2590; J2765; J7120

== ENCOUNTER 2022-05-18 10:21 | Day surgery (SDC) | payer OTHER ==
[~2022-05-18 10:21] MED LIST: Albuterol 0.083% 2.5 MG/3 ML Neb Soln NEB PRN; HYDROmorphone 1 MG/ML Syringe IVPUSH PRN; Lactated Ringers 1,000 ML IV SCH; Metoclopramide 10 MG/2 ML SDV IVPUSH PRN; Morphine 2 MG/ML SYRINGE IVPUSH PRN; Naloxone 0.4 MG/ML SDV IVPUSH PRN; Ondansetron 4 MG/2 ML SDV IVPUSH PRN; Sodium Chloride 0.9% 10 ML Syringe FLUSH PRN; Sodium Chloride 0.9% 2.5 ML Syringe FLUSH PRN; Sodium Chloride 0.9% 20 ML SDV IV PRN; fentaNYL 50 MCG/ML SDV IVPUSH PRN
[2022-05-18] MEDS ORDERED: Ropivacaine 0.5% 5 MG/ML 30 ML SDV ONE (10:24)
[2022-05-18] MEDS ORDERED: Bupivacaine 25%/EPINEPHrine/PF 30 ML ONE (10:24)
[2022-05-18] MEDS ORDERED: Indocyanine Green 25 MG SDV ONE (10:26)
[2022-05-18] MEDS ORDERED: Rocuronium Bromide 50 MG/5 ML Syringe ONE (10:29)
[2022-05-18] MEDS ORDERED: Lidocaine 1% 5 ML VIAL ONE (10:29)
[2022-05-18] MEDS ORDERED: Propofol 200 MG/20 ML SDV ONE (10:29)
[2022-05-18] MEDS ORDERED: Ketorolac 30 MG/ML SDV ONE (10:29)
[2022-05-18] MEDS ORDERED: Dexamethasone 4 MG/ML 5 ML MDV ONE (10:29)
[2022-05-18] MEDS ORDERED: Ondansetron 4 MG/2 ML SDV ONE (10:29)
[2022-05-18] MEDS ORDERED: fentaNYL 100 MCG/2 ML SDV ONE (10:33)
[2022-05-18] MEDS ORDERED: Water For Injection, Sterile 20 ML ONE (10:34)
[2022-05-18] MEDS ORDERED: Dexmedetomidine 200 MCG/2 ML SDV ONE (10:34)
[2022-05-18] MEDS ORDERED: Sugammadex Sodium 200 MG/2 ML VIAL ONE (10:36)
[2022-05-18] MEDS ORDERED: Bupivacaine 0.5% 30 ML SDV ONE (10:52)
[2022-05-18] MEDS ORDERED: ceFAZolin 2 GM Vial ONE (11:22)
[2022-05-18] MEDS ORDERED: Phenylephrine 1% 10 MG/ML SDV ONE (11:31)
[2022-05-18] MEDS ORDERED: Phenylephrine HCl 0.5 MG/5 ML AMP ONE (11:31)
[2022-05-18] MEDS ORDERED: ePHEDrine 50 MG/ML SDV ONE ×2 (11:50)
[2022-05-18] MEDS ORDERED: ceFAZolin 2 GM in Premix Bag 1 BAG IV ONE (12:28)
[2022-05-18 14:10] VITALS: BP 108/62; PULSE 76
== END 2022-05-18 14:40 | disposition home or self-care (01) ==
LOC: MW.SDS 10:21
PROVIDERS: ATTEND Surgery
DX: K80.10 Calculus of gallbladder with chronic cholecystitis without obstruction (principal); K42.9 Umbilical hernia without obstruction or gangrene; R11.0 Nausea; K21.9 Gastro-esophageal reflux disease without esophagitis; F41.9 Anxiety disorder, unspecified; F32.A Depression, unspecified; E66.3 Overweight; Z68.27 Body mass index [BMI] 27.0-27.9, adult; Z79.899 Other long term (current) drug therapy
CPT/HCPCS: 81025; J0690; J1100; J1885; J2370; J2405; J2704; J2795; J3010; J3490; J7120